=== PATIENT | female | born 1955 | race Caucasian/White ===

== ENCOUNTER → 2017-12-08 | Outpatient (CLI) | payer BC | END | disposition home or self-care (01) | LOC: KCIC MAMMO 09:07 | DX: Z12.31 Encounter for screening mammogram for malignant neoplasm of breast (principal) | CPT/HCPCS: 77063; 77067 ==

== ENCOUNTER → 2017-12-15 | Outpatient (CLI) | payer BC | END | disposition home or self-care (01) | LOC: KCIC US 13:02 | DX: R92.8 Other abnormal and inconclusive findings on diagnostic imaging of breast (principal) | CPT/HCPCS: 76641 ==

== ENCOUNTER → 2017-12-18 | Day surgery (SDC) | payer BC ==
[~2017-12-18] MED LIST: LIDOCAINE 2% PF Vial for OR 5 ML VIAL.; PROPOFOL 20 ML IV; fentaNYL PF VIAL 100 MCG/2 ML VIAL
[2017-12-18] MEDS: IV RINGERS,LACTATED 1000ML 1,000 ML IV (06:35)
== END | disposition home or self-care (01) ==
LOC: ENDOS 06:02
DX: K21.0 Gastro-esophageal reflux disease with esophagitis (principal); K44.9 Diaphragmatic hernia without obstruction or gangrene; E03.9 Hypothyroidism, unspecified; Z82.3 Family history of stroke; Z82.49 Family history of ischemic heart disease and other diseases of the circulatory system
CPT/HCPCS: 43239; 88305; J2001; J2704; J3010

== ENCOUNTER → 2018-06-24 | Outpatient (CLI) | payer BC ==
[2017-12-18 07:59] VITALS: BP 118/67
[~2018-06-24] MED LIST changes: +BIEST PO; +DIPH50CA PO; -LIDOCAINE 2% PF Vial for OR 5 ML VIAL.; +PHEN15CA2 PO; -PROPOFOL 20 ML IV; +THYR16.2 PO; -fentaNYL PF VIAL 100 MCG/2 ML VIAL
--- NOTE | 2018-06-24 12:47 | KCIC ---
Bilateral breast diagnostic ultrasound HISTORY: Follow-up benign-appearing lesions and density in the medial right mammogram Sonographic sedation breast was performed bilaterally and multiple static images were obtained. There is a hypoechoic lesion in the 1:00 right breast 7 cm nipple measures 5 mm x 2 mm x 6 mm is well-circumscribed and wider than tall nonshadowing and has no detectable blood flow.. There is multiple distended debris-filled ducts in the periareolar breasts bilaterally. IMPRESSION: 1. Small mass in the 1:00 right breast 7 cm from the nipple. It is unclear if this corresponds with the mammographic abnormality. Recommend ultrasound-guided biopsy. After marker placement and follow-up mammogram it will be obvious if this corresponds with the mammographic abnormality. 2. Distended debris-filled ducts in the periareolar breasts bilaterally. This appears stable. BI-RADS Category 4: Suspicious. These results were discussed with the patient in person. The patient and the clinical service will be contacted by the radiology staff for further instructions. Electronically signed by: Robby Hernandez III, MD (06/24/2018 12:43 PM) [id number]
--- NOTE | 2018-06-24 14:04 | KCIC ---
History: 6 month follow-up asymmetric tissue densities. Technique: Bilateral digital mammographic routine views were obtained with CAD - computer aided detection. Comparison: December 08, 2017. Findings: Breast Tissue Density D :The breast tissue is extremely dense, lowering the sensitivity of the examination. There is increasing density in the far medial right breast seen in the cc view only. Ultrasound demonstrates a small lesion in the 1:00 right breast 7 cm from the nipple which may correspond with this abnormality. There are no suspicious microcalcifications or areas of architectural distortion. Impression: Recommend ultrasound-guided biopsy of the lesion seen in the 1:00 right breast on ultrasound. During biopsy a marker will be placed and a follow-up mammogram will confirm that the ultrasound abnormality and mammographic abnormality are the same. These results have been discussed with the patient in person. The patient and the clinical service will be contacted by the radiology staff for further instructions. BI-RADS Category 4: Suspicious. Your mammogram demonstrates that you have dense breast tissue, which could hide abnormalities, and if you have other risk factors for breast cancer that have been identified, you might benefit from supplemental screening tests that may be suggested by your ordering physician. Dense breast tissue, in and of itself, is a relatively common condition. This information is not provided to cause undue concern, but rather to raise your awareness and to promote discussion with your physician regarding the presence of other risk factors, in addition to dense breast tissue. A report of your mammography results will be sent to you and your physician. You should contact your physician if you have any questions or concerns regarding this report. A mammogram does not have 100% sensitivity and therefore a negative imaging study should not delay further work up of a suspicious abnormality. The patient will receive a letter with the results in the mail. Patient information is entered into the reminder system with a target due date for the next screening mammogram. The patient will receive a reminder. "Our facility is accredited by the [employer] Mammography Program." Electronically signed by: Robby Hernandez III, MD (06/24/2018 2:00 PM) [facility]
== END | disposition home or self-care (01) ==
LOC: KCIC MAMMO 10:39
PROVIDERS: ATTEND Nurse Practitioner Family
DX: N63.12 Unspecified lump in the right breast, upper inner quadrant (principal)
CPT/HCPCS: 76641; 77066; G0279; 77062